=== PATIENT | male | born 1990 | race Two or more races ===

== ENCOUNTER 2024-01-30 20:32 | Emergency (ER) | payer SELFPAY ==
[2024-01-30 20:39] VITALS: BP 117/77; PULSE 77; RESP 19; TEMP 98.1; BMI 40.7
== END 2024-01-30 23:50 | disposition left against medical advice (07) ==
LOC: JERFT 20:32
DX: S61.217A Laceration without foreign body of left little finger without damage to nail, initial encounter (principal); X58.XXXA Exposure to other specified factors, initial encounter
CPT/HCPCS: 99281-25